=== PATIENT | female | born 1945 | race Asian ===

== ENCOUNTER 2019-10-08 09:57 | Outpatient (CLI) | payer MEDICARE ==
--- NOTE | 2019-10-11 15:06 | MMO ---
Bilateral MAMMO Bilat Screen [facility]. CLINICAL HISTORY: Patient is 73 years old and is seen for screening. The patient has no family history of breast cancer. The patient has no personal history of cancer. VIEWS: The views performed were: bilateral craniocaudal with tomosynthesis and bilateral mediolateral oblique with tomosynthesis. FILMS COMPARED: The present examination has been compared to a prior imaging study performed at [facility] on 04/29/2016. This study has been interpreted with the assistance of computer-aided detection. MAMMOGRAM FINDINGS: There are scattered fibroglandular densities. There are stable benign appearing calcifications seen in both breasts. There are no suspicious masses, suspicious calcifications, or new areas of architectural distortion. IMPRESSION: THERE IS NO MAMMOGRAPHIC EVIDENCE OF MALIGNANCY. A ROUTINE FOLLOW-UP MAMMOGRAM IN 1 YEAR IS RECOMMENDED. THE RESULTS OF THIS EXAM WERE SENT TO THE PATIENT. ACR BI-RADS Category 2 - Benign finding MAMMOGRAPHY NOTE: 1. A negative mammogram report should not delay a biopsy if a dominant of clinically suspicious mass is present. 2. Approximately 10% to 15% of breast cancers are not detected by mammography. 3. Adenosis and dense breasts may obscure an underlying neoplasm. Reported by: VY RICARDO MD Electonically Signed: [id number]
== END 2019-10-08 09:58 | disposition home or self-care (01) ==
LOC: BICMAMMO 09:57
PROVIDERS: ATTEND Family Medicine
DX: Z12.31 Encounter for screening mammogram for malignant neoplasm of breast (principal)
CPT/HCPCS: 77063; 77067

== ENCOUNTER 2024-09-13 08:40 | Outpatient (CLI) | payer MEDICARE, OTHER | END 2024-09-13 08:41 | disposition home or self-care (01) | LOC: BICMAMMO 08:40 | PROVIDERS: ATTEND Family Medicine | DX: Z13.820 Encounter for screening for osteoporosis (principal); M81.0 Age-related osteoporosis without current pathological fracture; M85.89 Other specified disorders of bone density and structure, multiple sites | CPT/HCPCS: 77080 ==

== ENCOUNTER 2025-08-27 10:43 | Inpatient (IN) | payer OTHER ==
[2025-08-27] MEDS ORDERED: Iopamidol 370 76% 100 ML VIAL ONE (11:22)
[2025-08-27 11:42] LABS: #Basophils 0.03 10x3/uL (0.0-0.2); #Eosinophils 0.14 10x3/uL (0.0-0.7); #Monocytes 1.20 10x3/uL (0.11-0.59); #Neutrophils 3.71 10x3/uL (1.40-6.50); %Basophils 0.4 % (0.0-1.0); %Eosinophils 1.9 % (0.0-10.0); %Lymphocytes 27.6 % (21.0-51.0); %Monocytes 16.3 % (0.0-10.0); %Neutrophils 50.5 % (42.0-75.0); Hematocrit 28.1 % (36.0-47.0); Hemoglobin 9.1 g/dL (12.0-16.0); Mean Corpuscular Hemoglobin 24.6 pg (27.0-31.0); Mean Corpuscular Volume 75.9 fL (78.0-98.0); Platelet Count 218 10x3/uL (130-400); Red Blood Cell (RBC) Count 3.70 mill/uL (4.20-5.40); White Blood Cell (WBC) Count 7.35 10x3/uL (4.8-10.8)
[2025-08-27 12:20] LABS: ALT (SGPT) 18 U/L (Less than 34); AST (SGOT) 37 U/L (11-34); Albumin 3.5 g/dL (3.1-4.5); Alkaline Phosphatase 77 U/L (40-110); Anion Gap 12 mmol/L (10-20); BUN (Urea Nitrogen) 19 mg/dL (9.8-20.1); Bilirubin, Total 0.3 mg/dL (0.3-1.2); Calc. Creatinine Clearance 0 mL/min (70-130); Calcium 8.8 mg/dL (7.8-10.44); Carbon Dioxide 25 mmol/L (23-31); Chloride 108 mmol/L (98-107); Globulin 4.2 g/dL (2.4-3.5); Glucose 140 mg/dL (83-110); Lipase 55 U/L (8-78); Magnesium 2.0 mg/dL (1.6-2.6); Potassium 4.4 mmol/L (3.5-5.1); Sodium 141 mmol/L (136-145)
[2025-08-27] MEDS ORDERED: Aspirin Chewable 81 MG TAB ONE (14:05)
[2025-08-27] MEDS: Losartan 25 MG TAB PO SCH (16:03)
[2025-08-27] MEDS ORDERED: Losartan 25 MG TAB ONE (16:05)
[2025-08-27 17:07] VITALS: BMI 22.0
[2025-08-28 04:50] LABS: Cardiac Risk 3.9 (Less than 4.5); Cholesterol 63.0 mg/dl (< 200 Desired); HDL Cholesterol 16.0 mg/dL (>60 Neg Risk); LDL Cholesterol, Calculated 19.0 mg/dL; Triglycerides 142.0 mg/dL (Less than 150)
[2025-08-28] MEDS: PNEUMOC 20-VAL CONJ-DIP CRM/PF 0.5 ML SYRINGE IM ONE (09:13)
[2025-08-28] MEDS: Enoxaparin 40 MG (0.4 mL) SYRINGE SC SCH (09:16)
[2025-08-28] MEDS: Losartan 25 MG TAB PO SCH ×2 (09:16→20:51)
[2025-08-28 17:39] LABS: Hematocrit 26.1 % (36.0-47.0); Hemoglobin 8.1 g/dL (12.0-16.0); Platelet Count 182 10x3/uL (130-400)
[2025-08-29 04:21] LABS: Hematocrit 26.2 % (36.0-47.0); Hemoglobin 8.2 g/dL (12.0-16.0); Platelet Count 214 10x3/uL (130-400)
[2025-08-29 08:24] LABS: #Basophils 0.04 10x3/uL (0.0-0.2); #Eosinophils 0.13 10x3/uL (0.0-0.7); #Monocytes 1.62 10x3/uL (0.11-0.59); #Neutrophils 3.86 10x3/uL (1.40-6.50); %Basophils 0.5 % (0.0-1.0); %Eosinophils 1.6 % (0.0-10.0); %Lymphocytes 28.9 % (21.0-51.0); %Monocytes 19.6 % (0.0-10.0); %Neutrophils 46.7 % (42.0-75.0); Hematocrit 28.0 % (36.0-47.0); Hemoglobin 8.5 g/dL (12.0-16.0); Mean Corpuscular Hemoglobin 23.9 pg (27.0-31.0); Mean Corpuscular Volume 78.7 fL (78.0-98.0); Platelet Count 209 10x3/uL (130-400); Red Blood Cell (RBC) Count 3.56 mill/uL (4.20-5.40); White Blood Cell (WBC) Count 8.26 10x3/uL (4.8-10.8)
[2025-08-29] MEDS: Enoxaparin 30 MG (0.3 mL) SYRINGE SC SCH (08:57)
[2025-08-29] MEDS: Pantoprazole 40 MG DR.TAB PO SCH (08:58)
[2025-08-29 09:36] VITALS: BMI 22.0
[2025-08-29 11:33] LABS: Influenza A by NAA Not Detected (NotDetected); Influenza B by NAA Not Detected (NotDetected); SARS-CoV-2 NAA Rapid Test Not Detected (NotDetected)
[2025-08-29 15:26] VITALS: BP 151/65; TEMP 98.2
== END 2025-08-29 15:51 | disposition home or self-care (01) | DRG 305 ==
LOC: ERS 10:43 → ERHOLD 14:15 → OBS 16:52 → OBSVTOIN 08-28 13:47
PROVIDERS: ADMIT Internal Medicine; ATTEND Family Medicine
DX: I16.0 Hypertensive urgency (principal); E44.0 Moderate protein-calorie malnutrition; I10 Essential (primary) hypertension; E78.5 Hyperlipidemia, unspecified; E03.9 Hypothyroidism, unspecified; E11.9 Type 2 diabetes mellitus without complications; Z68.22 Body mass index [BMI] 22.0-22.9, adult; D56.8 Other thalassemias; Z98.42 Cataract extraction status, left eye; Z98.41 Cataract extraction status, right eye; Z79.890 Hormone replacement therapy; Z79.899 Other long term (current) drug therapy
CPT/HCPCS: 36415; 70450; 71045; 71275; 72125; 78452; 80053; 80061; 83036; 83690; 83735; 83880; 84484; 85014; 85018; 85025; 85049; 87636; 93005; 93017; 94760; 96374; 96376; A9502; J1650; J2785; Q9967